=== PATIENT | female | born 1980 | race Caucasian/White ===

== ENCOUNTER 2019-12-30 22:31 | Emergency (ER) | payer MEDICAID ==
[~2019-12-30] VITALS: Ht 165.1 cm; Wt 109.1 kg
[~2019-12-30 22:31] MED LIST: IBUP-1984 PO; IBUP-812 PO; OXYM30MI NS
== END 2019-12-30 23:15 | disposition home or self-care (01) ==
LOC: ER 22:31
DX: J06.9 Acute upper respiratory infection, unspecified (principal); R06.02 Shortness of breath; R43.8 Other disturbances of smell and taste; R50.9 Fever, unspecified; Z20.828 Contact with and (suspected) exposure to other viral communicable diseases; J45.909 Unspecified asthma, uncomplicated; F41.9 Anxiety disorder, unspecified; F32.9 Major depressive disorder, single episode, unspecified; Z72.89 Other problems related to lifestyle; Z88.0 Allergy status to penicillin; Z88.5 Allergy status to narcotic agent; Z79.899 Other long term (current) drug therapy
CPT/HCPCS: 36415; 87635; 99283

== ENCOUNTER 2020-01-02 07:29 | Emergency (ER) | payer MEDICAID ==
[~2020-01-02] VITALS: Ht 165.1 cm; Wt 118.2 kg
[2020-01-02 07:44] VITALS: BP 127/86
== END 2020-01-02 08:14 | disposition home or self-care (01) ==
LOC: ER 07:29
DX: J06.9 Acute upper respiratory infection, unspecified (principal); R05 Cough; R09.89 Other specified symptoms and signs involving the circulatory and respiratory systems; R06.02 Shortness of breath; R50.9 Fever, unspecified; R68.2 Dry mouth, unspecified; R53.83 Other fatigue; J45.909 Unspecified asthma, uncomplicated; F41.9 Anxiety disorder, unspecified; Z72.89 Other problems related to lifestyle; Z88.5 Allergy status to narcotic agent; Z88.0 Allergy status to penicillin; Z79.899 Other long term (current) drug therapy
CPT/HCPCS: 99281

== ENCOUNTER 2020-01-04 16:52 | Emergency (ER) | payer MEDICAID ==
[~2020-01-04] VITALS: Ht 165.1 cm; Wt 110.0 kg
[2020-01-04 17:05] VITALS: BP 144/80
[2020-01-04] MEDS ORDERED: LORazepam 1 MG tablet PO ONE (17:05)
== END 2020-01-04 17:59 | disposition home or self-care (01) ==
LOC: ER 16:53
DX: F41.9 Anxiety disorder, unspecified (principal); R05 Cough; R06.02 Shortness of breath; R50.9 Fever, unspecified; Z20.828 Contact with and (suspected) exposure to other viral communicable diseases; J45.909 Unspecified asthma, uncomplicated; Z72.89 Other problems related to lifestyle; Z88.5 Allergy status to narcotic agent; Z88.0 Allergy status to penicillin; Z79.899 Other long term (current) drug therapy
CPT/HCPCS: 99283

== ENCOUNTER 2024-03-12 14:06 | Emergency (ER) | payer MEDICAID ==
[~2024-03-12] VITALS: Ht 165.1 cm; Wt 122.7 kg
[2024-03-12 14:09] VITALS: BP 148/85; PULSE 95; RESP 16; TEMP 98.3; O2SAT 97
[2024-03-12] MEDS ORDERED: DOXY-460 PO (16:15)
[2024-03-12] MEDS ORDERED: LIDO20SO16 PO (16:16)
== END 2024-03-12 16:18 | disposition home or self-care (01) ==
LOC: ER 14:06
DX: J18.9 Pneumonia, unspecified organism (principal); J45.909 Unspecified asthma, uncomplicated; F41.9 Anxiety disorder, unspecified; F32.A Depression, unspecified; Z88.5 Allergy status to narcotic agent; Z88.0 Allergy status to penicillin; Z79.1 Long term (current) use of non-steroidal anti-inflammatories (NSAID); Z79.899 Other long term (current) drug therapy; Z72.89 Other problems related to lifestyle
CPT/HCPCS: 71045; 99283